=== PATIENT | male | born 1980 ===

== ENCOUNTER 2023-11-22 09:49 | Day surgery (SDC) | payer OTHER ==
[2023-11-22] MEDS: Lactated Ringers 1,000 ML IV SCH (13:03)
[2023-11-22] MEDS ORDERED: propofoL 50 ML ONE (13:39)
[2023-11-22] MEDS ORDERED: Lactated Ringers 1,000 ML IV SCH (15:15)
== END 2023-11-22 15:40 | disposition home or self-care (01) ==
LOC: MW.SDS 09:49
PROVIDERS: ATTEND Surgery
DX: K57.30 Diverticulosis of large intestine without perforation or abscess without bleeding (principal); K62.5 Hemorrhage of anus and rectum; E66.9 Obesity, unspecified; Z68.38 Body mass index [BMI] 38.0-38.9, adult; Z87.891 Personal history of nicotine dependence
CPT/HCPCS: 45378; J2704; J7120; 00811